=== PATIENT | male | born 1995 | race African-American/Black ===

== ENCOUNTER 2022-05-18 21:07 | Emergency (ER) | payer SELFPAY ==
--- OUTSIDE RECORDS SUMMARY | 2022-05-18 21:10 | XMS REPORT | Clinical Summary ---
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 Active Problems Not on file Social History Tobacco Use Types Packs/Day Years Used Date Never Assessed Sex Assigned at Date Recorded Not on file Last Filed Vital Signs Not on file Plan of Treatment Not on file Results Not on fileafter 05/18/2021
--- OUTSIDE RECORDS SUMMARY | 2022-05-18 21:11 | XMS REPORT | Continuity of Care Document ---
:1995 Author Organization [facility] t Address [address] [place] [address] Care Team Providers Name Role Phone Asked, No Pcp Primary Care Physician Unavailable Aaron Abarca Attending Clinician AARON ABARCA Attending Clinician Unavailable Lisa Colmenares Attending Clinician LISA COLMENARES Attending Clinician Unavailable ERIC GEORGES Attending Clinician Unavailable Eric Olvera Attending Clinician Problems Condition Condition Condition Status Onset Resolution Last Treating Co mments Source Name Details Category Date Date Treatment Clinician Date SEIZURES SEIZURES Diagnosis Active 2021-12-28 Memoria Active 11-18 10:11:00 l 11/18/2021 00:00: Douglas SUMMERS [address] KNOT ON KNOT ON Diagnosis Active 2021-10-03 Memoria CHEST CHEST - 20:42:00 l Active 00:00: Tres 10/03/2021 [facility] EAR ACHE EAR ACHE Diagnosis Active 2015-11-17 Memoria Active 00:36:00 l 11/16/2015 00:00: Douglas jorge 00 [facility] History of Past Illness Condition Condition Condition Status Onset Resolution Last Treating Co mments Source Name Details Category Date Date Treatment Clinician Date Altered Altered Problem 2021-11-20 2021-11-20 Memoria mental mental 11-18 23:21:22 23:21:22 l status, status, 18:00: Tres unspecifie unspecifie 00 d d 11/18/[address] [facility] Discharge Discharge Problem 2015-11-20 2015-11-20 Memoria Diagnosis: Diagnosis: 11-16 06:01:30 06:01:30 l Otitis Otitis 06:00: Tres media of media of 00 left ear left ear 11/17/2015 6 [facility] Allergies, Adverse Reactions, Alerts This patient has no known allergies or adverse reactions. Social History Social Habit Start Date Stop Date Quantity Comments Source History of Light tobacco [facility] Alcohol intake 2021-04-03 2021-04-03 Ex-drinker [facility] 00:00:00 00:00:00 (finding) Hospital Tobacco Comment 2021-04-03 2021-04-03 "3 times a week" [facility] 00:[facility] 00[facility]00 Hospital Tobacco use and 2019-09-25 2019-09-[address] [facility] exposure 00:00:00 00:00:00 [facility] Sex Assigned At [birth year] [facility] 00:00:00 00:00:00 Hospital Smoking Status Start Date Stop Date Source Social History [facility] Light tobacco smoker 2021-04-03 00:00:00 [facility] Former smoker 2019-09-25 00:00:00 2019-09-25 00:00:00 [facility] Medications Ordered Filled Start Stop Current Ordering Indication Dosage Frequency Signature Comments Components Source Medication Medication Date Date Medication? Clinician (SIG) Name Name Sulfamethox Yes 1 tab, PO, Memoria azole 800 1-17 BID, drink l MG / 01:52: plenty of Tres Trimethopri 00 fluids m 160 MG Dosage Oral Tablet expressed [Bactrim] as trimethopr im, X 10 day, # 20 tab, 0 Refill(s) Ibuprofen Yes 400 mg = 1 Me moria 400 MG Oral 10-04 tab, PO, l Tablet 01:52: Q6H, PRN [place] 00 Pain, not to exceed 3200 mg/day with food or milk, X 7 day, # 24 tab, 0 Refill(s) acetaminoph Yes 500 mg = 1 Memoria en 500 mg 10-04 tab, PO, l oral 01:52: Q6H, PRN [place] tablet. 00 Pain, X 7 day, # 24 tab, 0 Refill(s) Acetaminoph No Notes: Rudy treva en 325 MG / 10-04 (Same as: l Hydrocodone 01:19: [place] nn Bitartrate 00 325/5) Do 5 MG Oral not exceed Tablet 4gm/day of [[place] acetaminop 5/325] hen. Lidocaine No Notes: Memori a Hydrochlori 10-04 (Same as: l de 10 MG/ML 01:19: Xylocaine) [place] Injectable 00 Solution No known No No known Metho di medications 04-[address] 16:54: [facility] l ibuprofen Yes Arthritis 600mg Take 1 [facility] (ADVIL,MOTR 09-26 of left tablet ity of [place]) 600 mg 00:00: sacroiliac (600 mg) [place] tablet 00 joint by mouth every 8 Anderso (eight) n hours as Cancer needed for Center moderate pain. methocarbam Yes Arthritis 750mg Take 1 [facility] ol 09-26 of left tablet ity of (ROBAXIN-75 00:00: sacroiliac (750 mg) [place] 0) 750 mg 00 joint by mouth MD tablet every 8 Anderso (eight) n hours as Cancer needed for Center muscle spasms. Amoxicillin Yes 875 mg = 1 Memoria 875 MG / 3- tab, PO, l Clavulanate 06:27: BID, X 10 H ermann 125 MG Oral 00 day, # 20 Tablet tab, 0 [Augmentin Refill(s) 875-mg] Tetracaine No Route: Memor ia 3- Each l 05:40: Affected [place] 00 Ear, ONCE, Dosing Weight 109.091, kg, Start date: 11/16/15 23:40:00, Stop date: 11/16/15 23:40:00 Vital Signs Vital Name Observation Time Observation Value Comments Source Height 2021-11-18 15:54:00 185.42 [facility] BMI Calculated 2021-11-18 15:54:00 Memori al [place] Weight 2021-11-18 15:54:00 [facility] [place] Systolic (mm Hg) 2021-11-18 15:54:00 Rudy rial [place] Diastolic (mm Hg) 2021-11-18 15:54:00 Mem orial [place] Heart Rate 2021-11-18 15:54:00 [facility] Respitory Rate 2021-11-18 15:54:00 Memori al [place] Temperature Oral (F) 2021-11-18 15:54:00 98.2 F [facility] [place] Temperature Oral (F) 2021-10-04 02:09:00 99.2 F [facility] Heart Rate 2021-10-04 02:09:00 [facility] Respitory Rate 2021-10-04 02:09:00 Memori al [place] Systolic (mm Hg) 2021-10-04 02:09:00 Rudy rial Tres Diastolic (mm Hg) 2021-10-04 02:09:00 Mem orial [place] Height 2021-10-04 00:53:00 185.42 cm [facility] BMI Calculated 2021-10-04 00:53:00 Memori al T[place] Weight 2021-10-04 00:53:00 [facility] [place] Systolic (mm Hg) 2021-10-04 00:53:00 Rudy rial [place] Diastolic (mm Hg) 2021-10-04 00:53:00 Mem orial [place] Heart Rate 2021-10-04 00:53:00 [facility] [place] Respitory Rate 2021-10-04 00:53:00 Memori al [place] Temperature Oral (F) 2021-10-04 00:53:00 99.6 F [facility] Heart Rate 2015-11-17 06:31:00 [facility] Respitory Rate 2015-11-17 06:31:00 Memori al [facility] Systolic (mm Hg) 2015-11-17 06:31:00 Rudy rial Tres Diastolic (mm Hg) 2015-11-17 06:31:00 Mem orial [place] Weight 2015-11-17 05:22:00 [facility] Tres Temperature Oral (F) 2015-11-17 05:22:00 98.6 F [facility] Respitory Rate 2015-11-17 05:22:00 Memori al T[facility] Heart Rate 2015-11-17 05:22:00 [facility] Systolic (mm Hg) 2015-11-17 05:22:00 Rudy rial [place] Diastolic (mm Hg) 2015-11-17 05:22:00 Mem orial T[place] Procedures This patient has no known procedures. Plan of Care Planned Activity Planned Date Details Comments Source Future Scheduled 2022-05-[address] [facility] 00:00:00 (#1) [code = Medical Center INFLUENZA VACCINE (#1)] Future Scheduled 2021-09-[address] [facility] Test 00:00:00 (12+) [code = [facility] DEPRESSION SCREENING (12+)] Future Scheduled [address] [facility] 00:[facility]:00 (procedure) [code = Medical Center [id number]] Future Scheduled 2014 DTAP/TDAP/TD VACCINES [facility] 00:00:00 (1 - Tdap) [code = Medical C enter DTAP/TDAP/TD VACCINES (1 - Tdap)] Future Scheduled 2013 HEPATITIS C SCREENING [facility] 00:00:00 [code = HEPATITIS C Medical Center SCREENING] Future Scheduled 1996-03-06 COVID-19 VACCINE (#1) [facility] 00:00:00 [code = COVID-[address] VACCINE (#1)] Encounters Start End Encounter Admission Attending Care Care Encounter Source Date/Time Date/Time Type Type Clinicians Facility Department ID 2021-11-18 2021-11-18 Emergency Critical access hospital [id number] Memoria 15:52:17 21:24:00 r Tres 02 l [facility] 2021-11-18 2021-11-18 Outpatient Katiuska [facility] [id number] 09:52:17 15:24:00 Aaron 02 2021-11-18 2021-11-18 Emergency E CIOZDA, [facility] [id number] [facility] 09:52:00 15:24:00 AARON 2021-10-04 2021-10-04 Emergency nullFlavo [facility] [id number] Memoria 00:51:52 02:30:00 r Tres 01 l [facility] 2021-10-03 2021-10-03 Outpatient Colmenares, [facility] [id number] 18:51:52 20:30:00 Lisa Benji 2021-10-03 2021-10-03 Emergency E COLMENARES, [facility] [address] [facility] 18:51:00 20:30:00 LISA 2021-04-03 2021-04-03 Emergency DE GARCIA, [facility] [id number] [place] 00:00:00 00:00:00 CHRISTOPHER 354 [facility] 2015-11-17 2015-11-17 nullFlavo [facility] [id number] Memoria 05:18:00 06:33:00 Emergency r [place] 00 l [facility] 2015-11-16 2015-11-17 Outpatient Olvera, [facility] [id number] 23:18:00 00:33:00 Christopher 00 Vivek Results Test Description Test Time Test Comments Results Result Comments Source DRUG SCREEN 2021-11-18 19:46:00 Test Item Value Reference Range Interpretation Comme nts U Amph Scr (test code = U Amph Scr) Negative *NA*(11/18/21 1:46 PM[id number] 19:46:00 Test Item Value Reference Range Interpretation Comments U Faby Scr (test code Negative *NA*(11/18/21 = U Faby Scr) 1:46 PM) [facility] [id number] 19:46:00 Test Item Value Reference Range Interpretation Comments U Benzodiaz Scr (test Negative *NA*(11/18/21 code = U Benzodiaz Scr) 1:46 PM) [facility] [id number] 19:46:00 Test Item Value Reference Range Interpretation Comments U Cocaine Scr (test Negative *NA*(11/18/21 code = U Cocaine Scr) 1:46 PM) [facility] [id number] 19:46:00 Test Item Value Reference Range Interpretation Comments U Cannab Scr (test Positive *ABN*(11/18/21 code = U Cannab Scr) 1:46 PM) [facility] [id number] 19:46:00 Test Item Value Reference Range Interpretation Comments U Opiate Scr (test Negative *NA*(11/18/21 code = U Opiate Scr) 1:46 PM) [facility] [id number] 19:46:00 Test Item Value Reference Range Interpretation Comments U Phencyclidine Scr (test Negative *NA*(11/18/21 code = U Phencyclidine 1:46 PM) Scr) [facility] [id number] 19:46:00 Test Item Value Reference Range Interpretation Comments U Methadone Scr (test Negative *NA*(11/18/21 code = U Methadone Scr) 1:46 PM) [facility] [employer] [id number] 19:46:00 Test Item Value Reference Range Interpretation Comments U Propoxyph Scr (test Negative *NA*(11/18/21 code = U Propoxyph Scr) 1:46 PM) [facility] [employer] [id number] 19:46:00 Test Item Value Reference Range Interpretation Comments UDS Note (test code = See Note (11/18/21 1:46 UDS Note) PM) [facility] [employer] [id number] 16:50:00 Test Item Value Reference Range Interpretation Comments HS Troponin I (test code = HS Troponin 6 I) [facility] [employer] [id number] 16:50:00 Test Item Value Reference Range Interpretation Comments Glucose Lvl (test code = Glucose Lvl) 97 70-99 [facility] [employer] [id number] 16:50:00 Test Item Value Reference Range Interpretation Comments BUN (test code = BUN) 15 7-22 [facility] [employer] [id number] 16:50:00 Test Item Value Reference Range Interpretation Comments Creatinine Lvl (test code = Creatinine 1.08 0.50-1.40 Lvl) [facility] [employer] [id number] 16:50:00 Test Item Value Reference Range Interpretation Comments Sodium Lvl (test code = Sodium Lvl) 141 135-145 [facility] [employer] [id number] 16:50:00 Test Item Value Reference Range Interpretation Comments Potassium Lvl (test code = Potassium 4.6 3.5-5.1 Lvl) [place] 518052-03-03 16:50:00 Test Item Value Reference Range Interpretation Comments Chloride Lvl (test code = Chloride Lvl) 108 95-109 [place] 518052-03-03 16:50:00 Test Item Value Reference Range Interpretation Comments CO2 (test code = CO2) 29 24-32 [place] 518052-03-03 16:50:00 Test Item Value Reference Range Interpretation Comments Calcium Lvl (test code = Calcium Lvl) 9.4 8.5-10.5 [place] 518052-03-03 16:50:00 Test Item Value Reference Range Interpretation Comments AGAP (test code = AGAP) 8.6 10.0-20.0 [place] 518052-03-03 16:50:00 Test Item Value Reference Range Interpretation Comments eGFR (test code = eGFR) 94 [place] 518052-03-03 16:50:00 Test Item Value Reference Range Interpretation Comments Magnesium Lvl (test code = Magnesium 2.6 1.8-2.4 Lvl) [place] 518052-03-03 16:50:00 Test Item Value Reference Range Interpretation Comments Phosphorus (test code = Phosphorus) 3.5 2.5-4.5 [place] 208002-03-03 16:50:00 Test Item Value Reference Range Interpretation Comments WBC (test code = WBC) 4.5 3.7-10.4 [place] 208002-03-03 16:50:00 Test Item Value Reference Range Interpretation Comments RBC (test code = RBC) 5.62 4.70-6.10 [place] [address]-03-03 16:50:00 Test Item Value Reference Range Interpretation Comments Hgb (test code = Hgb) 15.9 14.0-18.0 [place] [address]-03-03 16:50:00 Test Item Value Reference Range Interpretation Comments Hct (test code = Hct) 48.3 42.0-54.0 [place] [address]-03-03 16:50:00 Test Item Value Reference Range Interpretation Comments MCV (test code = MCV) 86.0 80.0-94.[address]03 16:50:00 Test Item Value Reference Range Interpretation Comments MCH (test code = MCH) 28.2 pg 27.0-31.0 [place] 208002-03-03 16:50:00 Test Item Value Reference Range Interpretation Comments MCHC (test code = MCHC) 32.8 32.0-36.0 [place] 208002-03-03 16:50:00 Test Item Value Reference Range Interpretation Comments RDW (test code = RDW) 14.4 11.5-14.5 [place] 208002-03-03 16:50:00 Test Item Value Reference Range Interpretation Comments Platelet (test code = Platelet) 213 133-450 [place] 208002-03-03 16:50:00 Test Item Value Reference Range Interpretation Comments MPV (test code = MPV) 9.4 7.4-10.4 [place] 208002-03-03 16:50:00 Test Item Value Reference Range Interpretation Comments Segs (test code = Segs) 55.2 45.0-75.0 [place] 208002-03-03 16:50:00 Test Item Value Reference Range Interpretation Comments Lymphocytes (test code = Lymphocytes) 30.1 20.0-40.0 [place] 208002-03-03 16:50:00 Test Item Value Reference Range Interpretation Comments Monocytes (test code = Monocytes) 7.1 2.0-12.0 [place] 208002-03-03 16:50:00 Test Item Value Reference Range Interpretation Comments Eosinophils (test code = 6.2 See_Comment [A utomated message] The Eosinophils) system which ge nerated this result tra nsmitted reference range : <=4.0. The reference r daniel was not used to int erpret this result as normal/abnormal . [place] [address]-03-03 16:50:00 Test Item Value Reference Range Interpretation Comments Basophils (test code = 1.4 See_Comment [Aut omated message] The Basophils) system which ge nerated this result tra nsmitted reference range : <=1.0. The reference r daniel was not used to int erpret this result as normal/abnormal . [place] 208002-03-03 16:50:00 Test Item Value Reference Range Interpretation Comments Neutrophils # (test code = Neutrophils 2.5 1.5-8.1 #) [id number] 16:50:00 Test Item Value Reference Range Interpretation Comments Lymphocytes # (test code = Lymphocytes 1.4 1.0-5.5 #) [facility] [id number] 16:50:00 Test Item Value Reference Range Interpretation Comments Monocytes # (test code 0.3 See_Comment [Aut omated message] The = Monocytes #) system which generated this result tra nsmitted reference range : <=0.8. The reference r daniel was not used to int erpret this result as normal/abnormal . [facility] [id number] 16:50:00 Test Item Value Reference Range Interpretation Comments Eosinophils # (test code 0.3 See_Comment [A utomated message] The = Eosinophils #) system whic h generated this result tra nsmitted reference range : <=0.5. The reference r daniel was not used to int erpret this result as normal/abnormal . [facility] [id number] 16:50:00 Test Item Value Reference Range Interpretation Comments Basophils # (test code 0.1 See_Comment [Aut omated message] The = Basophils #) system which generated this result tra nsmitted reference range : <=0.2. The reference r daniel was not used to int erpret this result as normal/abnormal . [id number] 16:50:00 Test Item Value Reference Range Interpretation Comments [facility] HIV 4th GEN (test Negative *NA*(11/18/21 code = CDC HIV 4th 10:50 AM) GEN) [facility]
--- NOTE | 2022-05-18 23:47 | ER ---
Nurse's Notes [facility] Name: Gabo Veras Age: 26 yrs Sex: Male : 1995 Arrival Date: 05/18/2022 Time: 21:11 Bed 17 Private MD: Diagnosis: Acute upper respiratory infection, unspecified Presentation: 05/18 21:39 Chief complaint: Cough, congestion, SOB, diarrhea, and pain with cough x 2 days. Denies hb fever. Coronavirus screen: Client presents with at least one sign or symptom that may indicate coronavirus-19. Standard/surgical mask placed on the client. Provider contacted for isolation considerations. Ebola Screen: No symptoms or risks identified at this time. Risk Assessment: Do you want to hurt yourself or someone else? Patient reports no desire to harm self or others. Onset of symptoms was May 17, 2022. 21:39 Method Of Arrival: Ambulatory hb 21:39 Acuity: LEBRON 4 hb Historical: - Allergies: 21:41 No Known Allergies; hb - PMHx: 21:41 None; hb - PSHx: 21:41 None; hb - Immunization history:: Adult Immunizations up to date. - Social history:: Smoking status: Patient denies any tobacco usage or history of. Screenin:55 Abuse screen: Denies threats or abuse. Nutritional screening: No deficits noted. ja4 Tuberculosis screening: No symptoms or risk factors identified. Fall Risk None identified. Assessment: 21:55 General: Appears in no apparent distress. uncomfortable, Behavior is calm, cooperative, ja4 appropriate for age. Pain: Complains of pain in chest Pain currently is 9 out of 10 on a pain scale. Pain began 2-3 days ago. Cardiovascular: No deficits noted. Respiratory: Airway is patent Respiratory effort is even, Respiratory pattern is regular, Sputum is Onset: The symptoms/episode began/occurred gradually, the patient has moderate shortness of breath. Vital Signs: 21:39 BP 121 / 84; Pulse 97; Resp 20; Temp 98.7; Pulse Ox 98% on R/A; Weight 108.86 kg; hb Height 6 ft. 1 in. (185.42 cm); Pain 8/10; 23:59 BP 121 / 84; Pulse 97; Resp 20; Pulse Ox 98% on R/A; ja4 21:39 Body Mass Index 31.66 (108.86 kg, 185.42 cm) ED Course: 21:11 Patient arrived in ED. ja2 21:23 Anna Gong FNP-C is [facility]. kb 21:23 Geovanny Garcia MD is Attending Physician. kb 21:41 Triage completed. hb 21:41 Arm band placed on. hb 21:45 Daquan Veras, RN is Primary Nurse. ja4 21:55 Patient has correct armband on for positive identification. Bed in low position. Call ja4 light in reach. Adult w/ patient. 21:55 No provider procedures requiring assistance completed. ja4 22:47 Chest Single View XRAY In Process Unspecified. EDMS Administered Medications: No medications were administered Medication: 21:55 VIS not applicable for this client. ja4 Outcome: 23:46 Discharge ordered by . kb 23:59 Discharged to home ambulatory. ja4 23:59 Condition: good 23:59 Discharge instructions given to patient, Instructed on discharge instructions, follow up and referral plans. medication usage, Demonstrated understanding of instructions, follow-up care, medications. 05/19 00:01 Patient left the ED. ja4 Signatures: Dispatcher [employer] EDMS Anna Gong FNP-C FNP-Milena Chan, RN RN [place] De La Torre ja2 Daquan Veras, RN RN ja4
--- NOTE | 2022-05-18 23:47 | EDPHYS ---
Physician Documentation [facility] Name: Gabo Veras Age: 26 yrs Sex: Male : 1995 Arrival Date: 05/18/2022 Time: 21:11 Bed 17 Private MD: ED Physician Geovanny Garcia HPI: 05/19 00:17 This 26 yrs old Black Male presents to ER via Ambulatory with complaints of Cough, kb Congestion. 00:17 The patient or guardian reports cough, that is intermittent, described as mild, kb difficulty breathing. Onset: The symptoms/episode began/occurred 2 day(s) ago. Severity of symptoms: At their worst the symptoms were moderate, in the emergency department the symptoms are unchanged. Modifying factors: The symptoms are alleviated by nothing, the symptoms are aggravated by nothing. Associated signs and symptoms: The patient has no apparent associated signs or symptoms. The patient has not experienced similar symptoms in the past. The patient has not recently seen a physician. Patient reports cough, congestion, shortness of breath and chest pain with cough for 2 days.. Historical: - Allergies: 05/18 21:41 No Known Allergies; hb - PMHx: 21:41 None; hb - PSHx: 21:41 None; hb - Immunization history:: Adult Immunizations up to date. - Social history:: Smoking status: Patient denies any tobacco usage or history of. ROS: 05/19 00:16 Constitutional: Negative for fever, chills, and weight loss. kb ENT: Positive for rhinorrhea, sinus congestion. Cardiovascular: Positive for chest pain, with movement. Respiratory: Positive for cough, Negative for dyspnea on exertion, hemoptysis, orthopnea, pleurisy, shortness of breath, sputum production, wheezing. All other systems are negative. Exam: 00:16 Constitutional: This is a well developed, well nourished patient who is awake, alert, kb and in no acute distress. Head/Face: Normocephalic, atraumatic. ENT: Moist Mucous membranes Cardiovascular: Regular rate and rhythm with a normal S1 and S2. No gallops, murmurs, or rubs. No pulse deficits. Respiratory: Respirations even and unlabored. No increased work of breathing. Talking in full sentences Abdomen/GI: Soft, non-tender. No distention Skin: Warm, dry with normal turgor. Normal color. MS/ Extremity: Pulses equal, no cyanosis. Neurovascular intact. Full, normal range of motion. Neuro: Awake and alert, GCS 15, oriented to person, place, time, and situation. Moves all extremities. Normal gait. Psych: Awake, alert, with orientation to person, place and time. Behavior, mood, and affect are within normal limits. Vital Signs: 05/18 21:39 BP 121 / 84; Pulse 97; Resp 20; Temp 98.7; Pulse Ox 98% on R/A; Weight 108.86 kg; hb Height 6 ft. 1 in. (185.42 cm); Pain 8/10; 23:59 BP 121 / 84; Pulse 97; Resp 20; Pulse Ox 98% on R/A; ja4 21:39 Body Mass Index 31.66 (108.86 kg, 185.42 cm) hb MDM: 21:48 Patient medically screened. kb 23:45 Data reviewed: vital signs, nurses notes. Data interpreted: Pulse oximetry: on room air kb is 98 %. Interpretation: normal. Counseling: I had a detailed discussion with the patient and/or guardian regarding: the historical points, exam findings, and any diagnostic results supporting the discharge/admit diagnosis, lab results, radiology results, the need for outpatient follow up, a family practitioner, to return to the emergency department if symptoms worsen or persist or if there are any questions or concerns that arise at home. 05/18 21:45 Order name: Flu; Complete Time: 22:25 hb 05/18 21:45 Order name: COVID-19 SARS RT PCR (Document "Date of Onset" if Symptomatic); Complete hb Time: 22:54 05/18 22:17 Order name: Chest Single View XRAY kb Administered Medications: No medications were administered Disposition: 05/19 00:02 Co-signature as Attending Physician, Geovanny Garcia MD I was immediately available on-site rn in the Emergency Department for consultation in the care of the patient.. Disposition Summary: 05/18/22 23:46 Discharge Ordered Location: [place] kb Condition: Stable kb Diagnosis - Acute upper respiratory infection, unspecified kb Followup: kb - With: Emergency Department - When: As needed - Reason: Worsening of condition Followup: kb - With: Private Physician - When: 2 - 3 days - Reason: Recheck today's complaints, Continuance of care, Re-evaluation by your physician Discharge Instructions: - Discharge Summary Sheet kb - Upper Respiratory Infection, Adult, [id number] kb Forms: - Medication Reconciliation Form kb - Thank You Letter kb - Antibiotic Education kb - Work release form kb - Prescription Opioid Use kb Signatures: Dispatcher [employer] Anna Benjamin, Geovanny Argueta MD MD rn Baxter, Heather, RN RN
[2022-05-19 03:38] VITALS: BP 121/84; TEMP 98.7; O2SAT 98
--- NOTE | 2022-05-19 11:54 | RAD REPORT ---
EXAM DESCRIPTION: RAD - Chest Single View - 05/18/2022 10:45 pm CLINICAL HISTORY: Cough. COMPARISON: None. TECHNIQUE: Single view AP chest radiograph(s). FINDINGS: Mild perihilar interstitial thickening. No infiltrate identified. No pleural effusion. No pneumothorax. Nonenlarged cardiomediastinal silhouette. No significant osseous abnormality. IMPRESSION: Mild perihilar interstitial thickening. No infiltrate identified. Electronically signed by: Kristen Wright MD 05/18/2022 11:05 PM CDT Due to temporary technical issues with the PACS/Fluency reporting system, reports are being signed by the in house radiologists without review as a courtesy to insure prompt reporting. The interpreting radiologist is fully responsible for the content of the report.
== END 2022-05-19 00:01 | disposition home or self-care (01) ==
LOC: ER 21:07
DX: J06.9 Acute upper respiratory infection, unspecified (principal); Z20.822 Contact with and (suspected) exposure to COVID-19
CPT/HCPCS: 71045; 87804; 99283; U0003

== ENCOUNTER 2024-08-23 16:29 | Emergency (ER) | payer BC, SELFPAY ==
[2024-08-23] MEDS ORDERED: dexAMETHasone 10 MG/ML VIAL ONE (17:09)
[2024-08-23] MEDS ORDERED: KETOROLAC 30 MG/ML INJ ONE (17:09)
--- NOTE | 2024-08-23 17:26 | EDPHYS ---
Physician Documentation [facility] Name: Gabo Veras Age: 28 yrs Sex: Male : 1995 Arrival Date: 08/23/2024 Time: 16:29 Bed 19 Private MD: ED Physician Cory Meek HPI: 08/23 17:19 This 28 yrs old Black Male presents to ER via Wheelchair with complaints of Back Pain. sp3 17:19 28-year-old male with history of sciatica once 4 years ago presents with left-sided sp3 shooting pain down the left posterior leg similar to his prior sciatica. At that time patient did not seek significant follow-up and his symptoms went away with muscle relaxers and steroids. Patient denies any loss of bowel or bladder control, other neurological symptoms, inability to walk, or any other signs or symptoms on ROS at this time.. Historical: - Allergies: 17:01 No Known Allergies; bp - Home Meds: 17:01 None [Active]; bp - PMHx: 17:01 None; bp - Immunization history:: Adult Immunizations up to date. - Infectious Disease History:: Denies. - Social history:: Smoking status: Patient denies any tobacco usage or history of. ROS: 17:22 Constitutional: Negative for fever, chills, and weight loss, Eyes: Negative for injury, sp3 pain, redness, and discharge, ENT: Negative for injury, pain, and discharge, Neck: Negative for injury, pain, and swelling, Cardiovascular: Negative for chest pain, palpitations, and edema, Respiratory: Negative for shortness of breath, cough, wheezing, and pleuritic chest pain, Abdomen/GI: Negative for abdominal pain, nausea, vomiting, diarrhea, and constipation, : Negative for injury, bleeding, discharge, and swelling, MS/Extremity: Negative for injury and deformity, Skin: Negative for injury, rash, and discoloration, Neuro: Negative for headache, weakness, numbness, tingling, and seizure, Psych: Negative for depression, anxiety, suicide ideation, homicidal ideation, and hallucinations, Allergy/Immunology: Negative for hives, rash, and allergies, Endocrine: Negative for neck swelling, polydipsia, polyuria, polyphagia, and marked weight changes, Hematologic/Lymphatic: Negative for swollen nodes, abnormal bleeding, and unusual bruising, 17:22 All other systems are negative, Exam: 17:23 Constitutional: This is a well developed, well nourished patient who is awake, alert, sp3 and in no acute distress. Head/Face: Normocephalic, atraumatic. Eyes: Pupils equal round and reactive to light, extra-ocular motions intact. Lids and lashes normal. Conjunctiva and sclera are non-icteric and not injected. Cornea within normal limits. Periorbital areas with no swelling, redness, or edema. Neck: Trachea midline, no thyromegaly or masses palpated, and no cervical lymphadenopathy. Supple, full range of motion without nuchal rigidity, or vertebral point tenderness. No Meningismus. Chest/axilla: Normal chest wall appearance and motion. Nontender with no deformity. No lesions are appreciated. Cardiovascular: Regular rate and rhythm with a normal S1 and S2. No gallops, murmurs, or rubs. Normal PMI, no JVD. No pulse deficits. Respiratory: Lungs have equal breath sounds bilaterally, clear to auscultation and percussion. No rales, rhonchi or wheezes noted. No increased work of breathing, no retractions or nasal flaring. Abdomen/GI: Soft, non-tender, with normal bowel sounds. No distension or tympany. No guarding or rebound. No evidence of tenderness throughout. Skin: Warm, dry with normal turgor. Normal color with no rashes, no lesions, and no evidence of cellulitis. Neuro: Awake and alert, GCS 15, oriented to person, place, time, and situation. Cranial nerves II-XII grossly intact. Motor strength 5/5 in all extremities. Sensory grossly intact. Cerebellar exam normal. Normal gait. Psych: Awake, alert, with orientation to person, place and time. Behavior, mood, and affect are within normal limits. 17:23 Musculoskeletal/extremity: Positive pain on leg raise on the left side. Neurologically normal with no neurovascular deficits.. Vital Signs: 16:58 BP 154 / 96; Pulse 86; Resp 16; Temp 98.1; Pulse Ox 98% ; bp MDM: 16:49 Medical Screening Exam initiated sp3 17:23 Data reviewed: vital signs, nurses notes. ED course: Differential diagnosis includes sp3 sciatica versus disc pathology versus piriformis syndrome. X-rays not indicated. Will treat with ketorolac and Decadron IM with follow-up to orthopedics and outpatient MRI. Will discharge on oral meds as well.. Administered Medications: 17:14 Drug: Ketorolac IM 60 mg IM once Route: IM; Site: right gluteus; bp 18:04 Follow up: Response: No adverse reaction bp 17:15 Drug: Dexamethasone IM 10 mg IM once Route: IM; Site: right gluteus; bp 18:04 Follow up: Response: No adverse reaction bp Disposition Summary: 08/23/24 17:25 Discharge Ordered Notes: Location: Home sp3 Condition: Stable sp3 Diagnosis - Low back pain and lumbar radiculopathy sp3 Followup: sp3 - With: Maurilio Albert MD - When: Upon discharge from the Emergency Department - Reason: Recheck today's complaints Discharge Instructions: - Discharge Summary Sheet sp3 - Lumbosacral Radiculopathy sp3 Forms: - Work release form ss - Medication Reconciliation Form sp3 - Antibiotic Education sp3 - Prescription Opioid Use sp3 - Patient Portal Instructions sp3 - Leadership Thank You Letter sp3 Prescriptions: - Cyclobenzaprine 10 mg Oral Tablet - take 1 tablet ORAL route every 8 hours As needed; 30 tablet; Refills: 0, sp3 Product Selection Permitted - Diclofenac Sodium 75 mg Oral Tablet Sustained Release - take 1 tablet ORAL route 2 times per day; 30 tablet; Refills: 0, Product sp3 Selection Permitted Signatures: Dave Garcia, RN RN Cory Zapata MD MD sp3
--- NOTE | 2024-08-23 17:26 | ER ---
Nurse's Notes [facility] Name: Gabo Veras Age: 28 yrs Sex: Male : 1995 Arrival Date: 08/23/2024 Time: 16:29 Bed 19 Private MD: Diagnosis: Low back pain and lumbar radiculopathy Presentation: 08/23 16:58 Chief complaint: Patient states: LEFT SCIATIC PATTERN PAIN x2 DAYS. Coronavirus screen: bp At this time, the client does not indicate any symptoms associated with coronavirus-19. Ebola Screen: No symptoms or risks identified at this time. Initial Sepsis Screen: Does the patient meet any 2 criteria? No. Patient's initial sepsis screen is negative. Does the patient have a suspected source of infection? No. Patient's initial sepsis screen is negative. Risk Assessment: Do you want to hurt yourself or someone else? Patient reports no desire to harm self or others. Onset of symptoms is unknown. 16:58 Method Of Arrival: Wheelchair bp 16:58 Acuity: LEBRON 5 bp Triage Assessment: 17:01 General: Appears in no apparent distress. uncomfortable, Behavior is calm, cooperative, bp appropriate for age. Pain: Complains of pain in left lower back, left gluteus binh and left leg. EENT: No deficits noted. Neuro: Reports GAIT DISTURBANCE. Cardiovascular: No deficits noted. Respiratory: No deficits noted. GI: No signs and/or symptoms were reported involving the gastrointestinal system. : No deficits noted. Derm: No deficits noted. Musculoskeletal: Circulation, motion, and sensation intact. Historical: - Allergies: 17:01 No Known Allergies; bp - Home Meds: 17:01 None [Active]; bp - PMHx: 17:01 None; bp - Immunization history:: Adult Immunizations up to date. - Infectious Disease History:: Denies. - Social history:: Smoking status: Patient denies any tobacco usage or history of. Screenin:02 [facility] ED Fall Risk Assessment (Adult) History of falling in the last 3 months, bp including since admission No falls in past 3 months (0 pts) Confusion or Disorientation No (0 pts) Intoxicated or Sedated No (0 pts) Impaired Gait No (0 pts) Mobility Assist Device Used No (0 pt) Altered Elimination No (0 pt) Score/Fall Risk Level 0 - 2 = Low Risk. Abuse screen: Denies threats or abuse. Denies injuries from another. Nutritional screening: No deficits noted. Tuberculosis screening: No symptoms or risk factors identified. Assessment: 17:02 General: Appears in no apparent distress. uncomfortable, Behavior is calm, cooperative, bp appropriate for age. Neuro: Level of Consciousness is awake, alert, obeys commands, Oriented to Appropriate for age. 18:03 Reassessment: Patient states symptoms have improved. bp Vital Signs: 16:58 BP 154 / 96; Pulse 86; Resp 16; Temp 98.1; Pulse Ox 98% ; bp ED Course: 16:34 Patient arrived in ED. ra3 16:34 Cory Meek MD is Attending Physician. sp3 16:50 Dave Garcia RN is Primary Nurse. bp 17:01 Triage completed. bp 17:01 Arm band placed on. bp 17:02 Patient has correct armband on for positive identification. bp 17:02 No provider procedures requiring assistance completed. Patient did not have IV access bp during this emergency room visit. 17:25 Maurilio Albert MD is Referral Physician. sp3 18:03 Provided Education on: N/A. bp Administered Medications: 17:14 Drug: Ketorolac IM 60 mg IM once Route: IM; Site: right gluteus; bp 18:04 Follow up: Response: No adverse reaction bp 17:15 Drug: Dexamethasone IM 10 mg IM once Route: IM; Site: right gluteus; bp 18:04 Follow up: Response: No adverse reaction bp Medication: 17:02 VIS not applicable for this client. bp Outcome: 17:25 Discharge ordered by . sp3 18:03 Discharged to home ambulatory, with family, bp 18:03 Condition: stable 18:03 Discharge instructions given to patient, Instructed on discharge instructions, follow up and referral plans. medication usage, Demonstrated understanding of instructions, follow-up care, medications, Prescriptions given X 2, 18:04 Patient left the ED. bp Signatures: Dave Garcia, RN RN bp Cory Meek MD MD sp3 Cynthia Shin ra3
[2024-08-23 20:32] VITALS: BP 154/96; TEMP 98.1; O2SAT 98
--- OUTSIDE RECORDS SUMMARY | 2024-08-26 08:19 | XMS REPORT | Clinical Summary ---
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 30 tablet 09/26/2019 Active methocarbamol (ROBAXIN-750) 750 mg tabletIndicatio ns:Arthritis of left sacroiliac joint Take 1 tablet (750 mg) by mouth every 8 (eight) hours as needed for muscle spasms. 30 tablet 09/26/2019 Active Social History Tobacco Use Types Packs/Day Years Used Date Smoking Tobacco: Never Assessed Sex and Gender Information Value Date Recorded Sex Assigned at Not on file Legal Sex Male 6:04 PM [employer] Gender Identity Not on file Sexual Orientation Not on file Plan of Treatment Not on file
== END 2024-08-23 18:04 | disposition home or self-care (01) ==
LOC: ER 16:29
DX: M54.50 Low back pain, unspecified (principal); M54.16 Radiculopathy, lumbar region
CPT/HCPCS: 96372; 99284; J1100